=== PATIENT | male | born 1960 | race Caucasian/White ===

== ENCOUNTER 2017-08-04 05:37 | Inpatient (IN) ==
[2017-08-04] MEDS ORDERED: ASPIRIN PO STA (05:51)
[2017-08-04 06:05] LABS: MANUAL DIFF NEEDED? NO
[2017-08-04 06:09] LABS: BASO% 0.2 % (0.0-0.8); EOS# 0.11 X1000 (0.0-0.7); HEMATOCRIT 46.8 % (42.0-52.0); HEMOGLOBIN 16.1 g/dL (14.0-18.0); LYMPH# 1.46 X1000 (1.2-3.4); LYMPH% 13.2 % (20.5-51.1); MCH 30.9 PG (27-31); MCHC 34.4 g/dL (33-37); MCV 89.8 FL (81-99); MONO# 0.92 X1000 (0.11-0.59); MONO% 8.3 % (1.7-9.3); MPV 10.8 FL (7.4-10.4); NEUT% 77.3 % (42.2-75.2); PLT 188 X1000 (130-400); RBC 5.21 XMIL (4.7-6.1)
[2017-08-04 06:17] LABS: INR 0.95; PROTIME 9.9 Seconds (9.2-11.7); PTT 24.3 Seconds (22.0-36.0)
[2017-08-04] MEDS ORDERED: G.I. COCKTAIL PO ONE (06:25)
[2017-08-04 06:32] LABS: AGAP 11; ALBUMIN 4.4 g/dL (3.5-5.0); ALKALINE PHOSPHATASE 61 U/L (32-122); BUN 17 mg/dL (8-22); CALCIUM 9.8 mg/dL (8.8-10.2); CHLORIDE 106 mmol/L (98-107); CK PROFILE 147 U/L (24-204); COSMO 290; GOT 19 U/L (10-34); GPT 6 U/L (10-44); POTASSIUM 4.2 mmol/L (3.5-5.1); SODIUM 145 mmol/L (136-145); TCO2 28 mmol/L (25-35); TOTAL BILIRUBIN 0.24 mg/dL (0.20-1.00); TOTAL PROTEIN 7.2 g/dL (6.3-8.3)
[2017-08-04] MEDS ORDERED: NITROGLYCERIN TOP ONE (06:45)
[2017-08-04 07:34] LABS: UR AMPHETAMINES QUAL NONE DETECTED (NONE DETECT); UR BARBITUATES QUAL NONE DETECTED (NONE DETECT); UR BENZODIAZEPIN QUAL NONE DETECTED (NONE DETECT); UR CANNABINOIDS QUAL NONE DETECTED (NONE DETECT); UR COCAINE QUAL NONE DETECTED (NONE DETECT); UR METHADONE QUAL NONE DETECTED (NONE DETECT); UR OPIATES QUAL NONE DETECTED (NONE DETECT); UR OXYCODONE QUAL NONE DETECTED (NONE DETECT); UR PCP QUAL NONE DETECTED (NONE DETECT)
[2017-08-04 07:39] LABS: BILIRUBIN URINE NEGATIVE (NEGATIVE); BLOOD URINE NEGATIVE (NEGATIVE); CLARITY CLEAR (CLEAR); COLOR YELLOW; GLUCOSE URINE NEGATIVE (NEGATIVE); LEUKOCYTES URINE NEGATIVE (NEGATIVE); NITRITE URINE NEGATIVE (NEGATIVE); PH URINE 6.5; PROTEIN URINE NEGATIVE (NEGATIVE); SP GRAVITY URINE 1.015; URINE SOURCE CLEAN CATCH; UROBILINOGEN URINE 0.2 EU/dL (0.2-1.0)
[2017-08-04 07:56] LABS: URINE EPITHELIAL CELLS <10 /HPF (<10); URINE RBC <10 /HPF (<10); URINE WBC <10 /HPF (<10)
[2017-08-04 07:57] LABS: URINE CULTURE NEEDED? YES
[2017-08-04] MEDS ORDERED: TYLENOL PO PRN (13:40)
[2017-08-04] MEDS ORDERED: ZOFRAN IV PRN (13:41)
[2017-08-04] MEDS ORDERED: SALINE LOCK IV FLUID XX ONE (13:42)
[2017-08-04] MEDS: MORPHINE IV PRN ×3 (13:44→22:03)
[2017-08-04] MEDS ORDERED: PROTONIX IV SCH (13:45)
[2017-08-04] MEDS ORDERED: SODIUM CHLORIDE 0.9% INJ SCH (13:45)
[2017-08-04] MEDS ORDERED: NITROGLYCERIN TOP SCH (13:45)
[2017-08-04] MEDS: CARAFATE LIQUID PO SCH ×2 (17:06→21:48)
[2017-08-04] MEDS ORDERED: TORADOL IV ONE (20:52)
[2017-08-04] MEDS: MOTRIN PO SCH (21:49)
[2017-08-04] MEDS: COLCRYS PO SCH (21:49)
[2017-08-05] MEDS: CARAFATE LIQUID PO SCH ×2 (02:21→08:27)
[2017-08-05 08:18] VITALS: BP 132/82
[2017-08-05] MEDS: COLCRYS PO SCH (08:27)
[2017-08-05] MEDS: MOTRIN PO SCH (08:27)
[2017-08-05] MEDS ORDERED: ASPIRIN PO SCH (09:00)
== END 2017-08-05 13:43 | disposition home or self-care (01) ==
LOC: ED 05:37 → 3N 11:29
PROVIDERS: ADMIT Family Medicine; ATTEND Family Medicine